=== PATIENT | female | born 1960 | race African-American/Black ===

== ENCOUNTER 2017-09-19 22:50 | Emergency (ER) | payer OTHER ==
[~2017-09-19] VITALS: Ht 152.4 cm; Wt 95.3 kg
[2017-09-19 22:56] VITALS: BP 166/102
[2017-09-20] MEDS ORDERED: ACETAMINOPHEN ES 500 MG TABLET ONE (00:21)
[2017-09-20] MEDS ORDERED: ACETAMINOPHEN ES 500 MG TABLET PO ONE (00:30)
== END 2017-09-20 00:38 | disposition home or self-care (01) ==
LOC: ER 22:50
DX: S09.8XXA Other specified injuries of head, initial encounter (principal); W01.198A Fall on same level from slipping, tripping and stumbling with subsequent striking against other object, initial encounter; Y93.89 Activity, other specified; Y92.89 Other specified places as the place of occurrence of the external cause; Y99.8 Other external cause status
CPT/HCPCS: 70450-TC; A4606; Z7610